=== PATIENT | male | born 1955 | race Caucasian/White ===

== ENCOUNTER → 2016-12-08 | Outpatient (CLI) | payer BC ==
--- NOTE | 2016-12-08 14:24 | US ---
EXAMINATION TYPE: US kidneys/renal and bladder DATE OF EXAM: 12/08/2016 COMPARISON: NONE CLINICAL HISTORY: R94.4 ABN RESULTS KIDNEY FUNCTIONS. History of testicular CA 20 years ago. EXAM MEASUREMENTS: Right Kidney: 11.0 x 6.0 x 4.3 cm Left Kidney: 11.0 x 5.2 x cm Post Void Residual Volume: 51.3 mL Right Kidney: No hydronephrosis, nephrolithiasis or masses seen Left Kidney: No hydronephrosis, nephrolithiasis or masses seen Bladder: wnl Bilateral Jets seen: Yes Normal Post Void Residual: No, as measures > 50.0ml IMPRESSION: No acute process
== END | disposition home or self-care (01) ==
LOC: RADUSWWP 13:42
PROVIDERS: ATTEND Family Medicine
DX: R94.4 Abnormal results of kidney function studies (principal)
CPT/HCPCS: 76770